=== PATIENT | male | born 1945 | race Caucasian/White ===

== ENCOUNTER 2022-12-12 21:43 | Inpatient (IN) | payer MEDICARE ==
[2022-12-12] MEDS ORDERED: hydrALAZINE 20 MG/ML VIAL SLOW IVP PRN (23:28)
[2022-12-13] MEDS ORDERED: Ondansetron ODT 4 MG TAB PO PRN (00:24)
[2022-12-13] MEDS ORDERED: Senokot S 8.6-50 MG TAB PO PRN (00:24)
[2022-12-13] MEDS ORDERED: Ketorolac Tromethamine 30 MG/ML VIAL IVP SCH (02:00)
[2022-12-13] MEDS: Acetaminophen 325 MG TAB PO PRN (02:05)
[2022-12-13] MEDS: Nicotine 21 MG PATCH TD SCH (02:05)
[2022-12-13 02:58] VITALS: BMI 23.1
[2022-12-13 03:07] LABS: SARS-CoV-2 NAA Rapid Test Not Detected (NotDetected)
[2022-12-13 06:06] LABS: #Eosinphils 0.1 thou/uL (0.0-0.7); #Lymphocytes 2.1 thou/uL (1.20-3.40); #Monocytes 0.8 thou/uL (0.11-0.59); #Neutrophils 6.9 thou/uL (1.40-6.50); %Basophils 0.2 % (0.0-1.0); %Eosinophils 0.8 % (0.0-10.0); %Lymphocytes 21.1 % (21.0-51.0); %Monocytes 8.1 % (0.0-10.0); %Neutrophils 69.8 % (42.0-75.0); Hemoglobin 14.4 g/dL (14.0-18.0); Mean Corpuscular HGB CONC 33.6 g/dL (32.0-36.0); Mean Corpuscular Hemoglobin 30.7 pg (27.0-31.0); Mean Corpuscular Volume 91.3 fl (78.0-98.0); Mean Platelet Volume 7.1 fL (7.4-10.4); Platelet Count 267 10x3/uL (130-400); RBC Distribution Width 12.1 % (11.5-14.5); Red Blood Cell (RBC) Count 4.68 mill/uL (4.70-6.10); White Blood Cell (WBC) Count 9.8 10x3/uL (4.8-10.8)
[2022-12-13 06:50] LABS: Anion Gap 13 mmol/L (10-20); BUN (Urea Nitrogen) 13 mg/dL (8.4-25.7); Calc. Creatinine Clearance 56 mL/min (70-130); Calcium 8.7 mg/dL (7.8-10.44); Carbon Dioxide 22 mmol/L (23-31); Cardiac Risk 3.1 (Less than 4.5); Chloride 108 mmol/L (98-107); Cholesterol 89 mg/dl (< 200 Desired); Estimated GFR 75; Glucose 104 mg/dL (83-110); HDL Cholesterol 29 mg/dL (>60 Neg Risk); LDL Cholesterol, Calculated 33 mg/dL; Potassium 3.3 mmol/L (3.5-5.1); Sodium 140 mmol/L (136-145); Triglycerides 133 mg/dL (Less than 150)
[2022-12-13] MEDS ORDERED: Electrolyte Replacement Protocol 1 EACH FS SCH (07:45)
[2022-12-13] MEDS ORDERED: Potassium Chloride 20 MEQ TAB PO SCH (08:00)
[2022-12-13] MEDS ORDERED: Electrolyte Replacement Protocol FS PRN (08:00)
[2022-12-13] MEDS ORDERED: Losartan 25 MG TAB PO SCH (09:00)
[2022-12-13] MEDS: Ezetimibe 10 MG TAB PO SCH (11:09)
[2022-12-13] MEDS: Famotidine 20 MG TAB PO SCH ×2 (11:09→20:06)
[2022-12-13] MEDS: Aspirin 81 mg Enteric Coated Tablet PO SCH (11:10)
[2022-12-13] MEDS ORDERED: Labetalol HCl 100 MG/20 ML VIAL SLOW IVP PRN (11:35)
[2022-12-13 14:19] LABS: Potassium 3.6 mmol/L (3.5-5.1)
[2022-12-13] MEDS ORDERED: Acetaminophen 500 MG TAB PO PRN (19:25)
[2022-12-13] MEDS: HYDROcodone/Acetaminophen 5/325 mg Tablet PO PRN (20:07)
[2022-12-13] MEDS ORDERED: Atorvastatin Calcium 40 MG TAB PO SCH (21:00)
[2022-12-14] MEDS: Acetaminophen 325 MG TAB PO PRN (00:16)
[2022-12-14] MEDS: Nicotine 21 MG PATCH TD SCH ×2 (00:17→23:46)
[2022-12-14] MEDS: HYDROcodone/Acetaminophen 5/325 mg Tablet PO PRN ×4 (03:28→22:30)
[2022-12-14 07:26] LABS: Cardiac Risk 3.9 (Less than 4.5)
[2022-12-14] MEDS: Ezetimibe 10 MG TAB PO SCH (10:40)
[2022-12-14] MEDS: Aspirin 81 mg Enteric Coated Tablet PO SCH (10:40)
[2022-12-14] MEDS: Famotidine 20 MG TAB PO SCH ×2 (10:40→20:16)
[2022-12-14] MEDS ORDERED: Losartan 25 MG TAB PO SCH (12:00)
[2022-12-14] MEDS ORDERED: Amlodipine 5 MG TAB PO SCH (12:00)
[2022-12-14] MEDS ORDERED: Spironolactone 25 MG TAB PO SCH ×2 (13:45→21:00)
[2022-12-14] MEDS ORDERED: hydrALAZINE 20 MG/ML VIAL SLOW IVP PRN (14:40)
[2022-12-14] MEDS: hydrALAZINE 25 MG TAB PO SCH (20:15)
[2022-12-15] MEDS ORDERED: HYDROcodone/Acetaminophen 5/325 mg Tablet PO SCH (01:00)
[2022-12-15] MEDS ORDERED: Morphine 2 MG/ML VIAL SLOW IVP SCH (02:00)
[2022-12-15 06:54] LABS: Anion Gap 14 mmol/L (10-20); BUN (Urea Nitrogen) 16 mg/dL (8.4-25.7); Calc. Creatinine Clearance 55 mL/min (70-130); Calcium 9.3 mg/dL (7.8-10.44); Carbon Dioxide 23 mmol/L (23-31); Chloride 107 mmol/L (98-107); Estimated GFR 75; Glucose 106 mg/dL (83-110); Potassium 3.6 mmol/L (3.5-5.1); Sodium 140 mmol/L (136-145)
[2022-12-15] MEDS ORDERED: Non-Formulary Item 1 EACH (Sildenafil Citrate [Sildenafil Citrate] 100 MG Tablet) PO SCH (09:00)
[2022-12-15] MEDS ORDERED: Ondansetron PF 4 MG/2 ML Vial IVP PRN (09:30)
[2022-12-15] MEDS: Aspirin 81 mg Enteric Coated Tablet PO SCH (10:08)
[2022-12-15] MEDS: Losartan 25 MG TAB PO SCH (10:09)
[2022-12-15] MEDS: metFORMIN 500 MG TAB PO SCH (10:09)
[2022-12-15] MEDS: Empagliflozin 25 MG TAB PO SCH (10:09)
[2022-12-15] MEDS: hydrALAZINE 25 MG TAB PO SCH ×2 (10:09→20:39)
[2022-12-15] MEDS: Amlodipine 10 MG TAB PO SCH (10:09)
[2022-12-15] MEDS: Famotidine 20 MG TAB PO SCH ×2 (10:09→20:39)
[2022-12-15] MEDS: Ezetimibe 10 MG TAB PO SCH (10:10)
[2022-12-15] MEDS: Spironolactone 25 MG TAB PO SCH (10:10)
[2022-12-15 10:19] LABS: Magnesium 1.8 mg/dL (1.6-2.6)
[2022-12-15] MEDS ORDERED: Magnesium 2 GM/50 ML(in water) 2 GM in Premix Bag 1 BAG IVPB SCH (11:30)
[2022-12-15] MEDS ORDERED: hydrALAZINE 20 MG/ML VIAL SLOW IVP PRN (11:36)
[2022-12-15] MEDS ORDERED: Carvedilol 6.25 MG TAB PO SCH ×3 (11:45→17:00)
[2022-12-15] MEDS ORDERED: Non-Formulary Item 1 EACH (Albuterol Sulfate [Proair Digihaler] 90 MCG Aer.Pw.Bas) IH PRN (11:45)
[2022-12-15] MEDS ORDERED: Senokot 8.6 MG TAB PO PRN (11:47)
[2022-12-15] MEDS ORDERED: hydrALAZINE 25 MG TAB PO SCH (15:00)
[2022-12-15] MEDS: Carvedilol 6.25 MG TAB PO SCH (20:38)
[2022-12-16] MEDS: Ipratropium/Albuterol 3 ML NEB NEB SCH ×3 (00:23→11:09)
[2022-12-16] MEDS: Nicotine 21 MG PATCH TD SCH (00:30)
[2022-12-16] MEDS ORDERED: Mometasone 100 MCG/PUFF (1 INHALER) INH SCH (06:30)
[2022-12-16] MEDS ORDERED: Multivitamin W/ Minerals 1 TAB PO SCH (09:00)
[2022-12-16] MEDS ORDERED: Fluticasone/Umeclidin/Vilanter [Trelegy Ellipta 100-62.5-25] INH SCH (09:00)
[2022-12-16] MEDS ORDERED: Non-Formulary Item 1 EACH (Fluticasone/Umeclidin/Vilanter [Trelegy Ellipta 100-62.5-25] 1 INH SCH (09:00)
[2022-12-16] MEDS: Spironolactone 25 MG TAB PO SCH (09:07)
[2022-12-16] MEDS: Aspirin 81 mg Enteric Coated Tablet PO SCH (09:07)
[2022-12-16] MEDS: Amlodipine 10 MG TAB PO SCH (09:07)
[2022-12-16] MEDS: metFORMIN 500 MG TAB PO SCH (09:10)
[2022-12-16] MEDS: Ezetimibe 10 MG TAB PO SCH (09:10)
[2022-12-16] MEDS: hydrALAZINE 25 MG TAB PO SCH (09:12)
[2022-12-16] MEDS: Famotidine 20 MG TAB PO SCH (09:13)
[2022-12-16] MEDS: Empagliflozin 25 MG TAB PO SCH (09:13)
[2022-12-16] MEDS: Carvedilol 6.25 MG TAB PO SCH (09:13)
[2022-12-16] MEDS: Losartan 25 MG TAB PO SCH (09:14)
[2022-12-16] MEDS ORDERED: Clopidogrel Bisulfate 75 MG TAB PO SCH (11:00)
[2022-12-16 12:50] VITALS: BP 132/65; TEMP 97.7
== END 2022-12-16 14:45 | disposition home or self-care (01) | DRG 65 ==
LOC: NEURO 21:43 → OBSVTOIN 12-13 11:39
PROVIDERS: ADMIT Student in an Organized Health Care Education/Training Program; ATTEND Internal Medicine
DX: I63.531 Cerebral infarction due to unspecified occlusion or stenosis of right posterior cerebral artery (principal); I16.1 Hypertensive emergency; I50.32 Chronic diastolic (congestive) heart failure; Z20.822 Contact with and (suspected) exposure to COVID-19; E78.5 Hyperlipidemia, unspecified; I25.10 Atherosclerotic heart disease of native coronary artery without angina pectoris; F17.210 Nicotine dependence, cigarettes, uncomplicated; I11.0 Hypertensive heart disease with heart failure; R29.700 NIHSS score 0; I65.22 Occlusion and stenosis of left carotid artery; E83.42 Hypomagnesemia; Z95.1 Presence of aortocoronary bypass graft; Z88.8 Allergy status to other drugs, medicaments and biological substances; Z79.82 Long term (current) use of aspirin; Z79.51 Long term (current) use of inhaled steroids; Z79.899 Other long term (current) drug therapy
CPT/HCPCS: 36415; 36416; 70551; 80048; 80061; 83735; 85025; 93306; 93880; 94640; 96372; 96374; G0378; J0360; J1650; J1885; J2272; J3475; J7620; Q0162